=== PATIENT | male | born 1960 | race Two or more races ===

== ENCOUNTER 2022-09-12 16:52 | Inpatient (IN) | payer OTHER ==
[~2022-09-12] VITALS: Ht 172.7 cm; Wt 82.8 kg
[2022-09-12 18:26] LABS: Albumin 2.8 g/dL (3.4-5.0); BUN/Creatinine Ratio 23.5; Calcium 8.2 mg/dL (8.5-10.1); Potassium 4.4 mmol/L (3.5-5.1)
[2022-09-12 18:28] LABS: Bilirubin, Total 0.9 mg/dL (0.2-1.0); Total Protein 6.3 g/dL (6.4-8.2)
[2022-09-12 18:43] LABS: Hematocrit 44.7 % (41.0-53.0); Hemoglobin 14.8 g/dL (13.5-17.5); Mean Corpuscular Hgb Conc. 33.2 g/dL (32.0-36.0)
[2022-09-12 19:02] LABS: Mean Corpuscular Hemoglobin 29.9 pg (28.0-32.0); Mean Corpuscular Volume 89.9 fL (80.0-100.0); Red Blood Cells 4.96 10^6/uL (4.5-5.90); Red Cell Distribution Width 14.2 % (11.8-14.3); White Blood Cell 24.2 10^3/uL (4.4-10.8)
[2022-09-12 19:04] LABS: Basophils % (manual) 0 (0.0-2.0); Blast Cells 0; Eosinophils % (manual) 0 (0-7); Metamyelocytes % 0; Myelocytes % 0; Promyelocytes % 0; Reactive Lymphocytes 0
[2022-09-12 19:47] LABS: Band Neutrophils % (manual) 2; Lymphocytes % (manual) 3 (10.0-50.0); Monocytes % (manual) 13 (0-12)
[2022-09-12] MEDS ORDERED: ALBUTEROL MEDNEB 2.5 mg/3ml NEB ONE (22:14)
[2022-09-12] MEDS ORDERED: ALBUTEROL SULF 2.5 MG/0.5ML(0.5%) NEB SOLN NEB ONE (22:15)
[2022-09-12] MEDS ORDERED: IPRATROPIUM BROM 0.5 MG/2.5ML INH SOL NEB ONE (22:15)
[2022-09-12] MEDS ORDERED: dilTIAZem 25 MG/5 ML VIAL IV ONE ×3 (22:58→23:30)
[2022-09-12] MEDS ORDERED: SODIUM CHLORIDE 0.9% 1,000 ML IV ONE (23:00)
[2022-09-12] MEDS ORDERED: NITROGLYCERIN 0.4 MG SL TAB SL PRN (23:30)
[2022-09-12] MEDS ORDERED: cefTRIAXone 1GM/50ML D5W 50 ML IV ONE (23:30)
[2022-09-12] MEDS ORDERED: ONDANSETRON HCL 4 MG/2 ML VIAL IV PRN (23:30)
[2022-09-12] MEDS ORDERED: MORPHINE SULFATE INJ 2 MG/ml SYRG IV PRN (23:30)
[2022-09-12] MEDS ORDERED: ALBUTEROL SULF 2.5 MG/0.5ML(0.5%) NEB SOLN NEB PRN (23:30)
[2022-09-12] MEDS ORDERED: TEMAZEPAM 15 MG CAP PO PRN (23:30)
[2022-09-13] MEDS ORDERED: DIGOXIN (250MCG/ML) 2 ML AMPULE IV ONE (00:45)
[2022-09-13] MEDS: SODIUM CHLORIDE 0.9% 1,000 ML IV SCH ×3 (00:48→23:02)
[2022-09-13] MEDS: dilTIAZem 125mg/125ml BAG KIT 125 ML IV SCH ×2 (01:06→09:28)
[2022-09-13 02:00] VITALS: BP 120/71
[2022-09-13 06:11] LABS: Albumin 2.5 g/dL (3.4-5.0); Calcium 7.6 mg/dL (8.5-10.1); Potassium 4.1 mmol/L (3.5-5.1)
[2022-09-13 06:13] LABS: Basophils # (auto) 0 10 ^3/uL (0-0.2); Basophils % (auto) 0.2 % (0.0-2.0); Eosinophils # (auto) 0.1 10 ^3/uL (0-0.8); Eosinophils % (auto) 0.3 % (0.0-7.0); Hemoglobin 13.6 g/dL (13.5-17.5); Lymphocytes # (auto) 1.1 10 ^3/uL (0.4-5.4); Lymphocytes % (auto) 5.1 % (10.0-50.0); Mean Corpuscular Hemoglobin 29.9 pg (28.0-32.0); Mean Corpuscular Hgb Conc. 33.1 g/dL (32.0-36.0); Mean Corpuscular Volume 90.4 fL (80.0-100.0); Monocytes # (auto) 1.5 10 ^3/uL (0-1.3); Monocytes % (auto) 7.2 % (0.0-12.0); Neutrophils # (auto) 18.6 10 ^3/uL (1.6-8.6); Neutrophils % (auto) 87.2 % (37.0-80.0); Nucleated Red Blood Cells % 0.1 %; Red Blood Cells 4.54 10^6/uL (4.5-5.90); Red Cell Distribution Width 14.2 % (11.8-14.3); White Blood Cell 21.3 10^3/uL (4.4-10.8)
[2022-09-13 06:14] LABS: BUN/Creatinine Ratio 31.3
[2022-09-13 06:16] LABS: Bilirubin, Total 0.7 mg/dL (0.2-1.0); Total Protein 5.7 g/dL (6.4-8.2)
[2022-09-13] MEDS: ASPirin 81 mg TAB PO SCH (09:27)
[2022-09-13] MEDS: ENOXAPARIN SOD 40 MG/0.4 ML SYRINGE SC SCH (09:28)
[2022-09-13] MEDS ORDERED: AMIODARONE HCL 200 MG TAB PO ONE (09:30)
[2022-09-13] MEDS: dilTIAZem HCL 180MG ER CAP PO SCH (09:53)
[2022-09-13] MEDS ORDERED: ENOXAPARIN SOD 40 MG/0.4 ML SYRINGE SC SCH (10:00)
[2022-09-13 10:06] LABS: Cholesterol 56 mg/dL (< 200)
[2022-09-13 10:09] LABS: HDL Cholesterol 12 mg/dL (40-59); LDL Cholesterol 26 mg/dL (< 100); Triglycerides 134 mg/dL (< 150)
[2022-09-13 12:24] LABS: Amphetamine Screen, Urine NEGATIVE (NEGATIVE); Barbiturate Scree,Urine NEGATIVE (NEGATIVE); Benzodiazephine Screen, Urine NEGATIVE (NEGATIVE); Cannabinoid Screen, Urine NEGATIVE (NEGATIVE); Cocaine Screen, Urine NEGATIVE (NEGATIVE); Phencyclidine Screen, Urine NEGATIVE (NEGATIVE)
[2022-09-13 12:36] LABS: Opiate Scree,Urine <140 (NEGATIVE)
[2022-09-13] MEDS ORDERED: SERTRALINE HCL 50 MG TAB PO ONE (15:00)
[2022-09-13] MEDS ORDERED: THIAMINE 100mg/ml INJ (200mg/2ml VIAL) IV ONE (15:00)
[2022-09-13] MEDS ORDERED: LORazepam 2MG/ML-1ML VIAL IV PRN (15:00)
[2022-09-13] MEDS: PIPERACILLIN-TAZOB 3.375GM 100 ML IV SCH ×2 (16:04→21:42)
[2022-09-13] MEDS ORDERED: cefTRIAXone 1GM/50ML D5W 50 ML IV SCH (21:00)
[2022-09-13 21:14] VITALS: BP 134/76
[2022-09-13] MEDS: AMIODARONE HCL 200 MG TAB PO SCH (21:43)
[2022-09-13 22:00] VITALS: BP 134/76
[2022-09-14 05:00] VITALS: BP 127/76
[2022-09-14] MEDS: PIPERACILLIN-TAZOB 3.375GM 100 ML IV SCH ×3 (05:59→21:33)
[2022-09-14 06:44] LABS: Albumin 2.4 g/dL (3.4-5.0); Calcium 7.9 mg/dL (8.5-10.1); Potassium 4.1 mmol/L (3.5-5.1)
[2022-09-14 06:47] LABS: Bilirubin, Total 1.2 mg/dL (0.2-1.0); Total Protein 5.8 g/dL (6.4-8.2)
[2022-09-14 06:57] LABS: Basophils # (auto) 0.1 10 ^3/uL (0-0.2); Basophils % (auto) 0.4 % (0.0-2.0); Eosinophils # (auto) 0 10 ^3/uL (0-0.8); Hematocrit 41.1 % (41.0-53.0); Hemoglobin 13.2 g/dL (13.5-17.5); Lymphocytes # (auto) 1.4 10 ^3/uL (0.4-5.4); Lymphocytes % (auto) 6.5 % (10.0-50.0); Mean Corpuscular Hemoglobin 28.9 pg (28.0-32.0); Mean Corpuscular Volume 90.1 fL (80.0-100.0); Monocytes # (auto) 1.6 10 ^3/uL (0-1.3); Monocytes % (auto) 7.4 % (0.0-12.0); Neutrophils # (auto) 18.1 10 ^3/uL (1.6-8.6); Neutrophils % (auto) 85.7 % (37.0-80.0); Red Blood Cells 4.56 10^6/uL (4.5-5.90); Red Cell Distribution Width 14.2 % (11.8-14.3); White Blood Cell 21.1 10^3/uL (4.4-10.8)
[2022-09-14 09:00] VITALS: BP 122/79
[2022-09-14] MEDS: ASPirin 81 mg TAB PO SCH (10:23)
[2022-09-14] MEDS: AMIODARONE HCL 200 MG TAB PO SCH ×2 (10:25→21:33)
[2022-09-14] MEDS: dilTIAZem HCL 180MG ER CAP PO SCH (10:26)
[2022-09-14] MEDS: SERTRALINE HCL 50 MG TAB PO SCH (10:27)
[2022-09-14] MEDS: ENOXAPARIN SOD 40 MG/0.4 ML SYRINGE SC SCH (10:28)
[2022-09-14] MEDS: THIAMINE 100mg/ml INJ (200mg/2ml VIAL) IV SCH (10:28)
[2022-09-14 13:00] VITALS: BP 130/80
[2022-09-14 16:17] LABS: Urine Bacteria FEW /hpf (None Seen); Urine Blood 2+ /uL (Negative); Urine Specific Gravity 1.027 (1.001-1.035); Urine WBC 4 /hpf (0 - 3)
[2022-09-14 16:24] VITALS: BP 128/81
[2022-09-14 20:00] VITALS: BP 116/91
[2022-09-14 22:00] VITALS: BP 116/91
[2022-09-15] VITALS (7 sets, daily range): BP systolic 120–147; BP diastolic 72–88
[2022-09-15 05:35] LABS: Hematocrit 40.2 % (41.0-53.0); Hemoglobin 13.2 g/dL (13.5-17.5); Mean Corpuscular Hemoglobin 29.5 pg (28.0-32.0); Mean Corpuscular Hgb Conc. 32.7 g/dL (32.0-36.0); Mean Corpuscular Volume 90.2 fL (80.0-100.0); Red Blood Cells 4.46 10^6/uL (4.5-5.90); Red Cell Distribution Width 14.2 % (11.8-14.3); White Blood Cell 18.5 10^3/uL (4.4-10.8)
[2022-09-15 05:36] LABS: Basophils % (manual) 0 (0.0-2.0); Blast Cells 0; Eosinophils % (manual) 0 (0-7); Metamyelocytes % 0; Myelocytes % 0; Promyelocytes % 0; Reactive Lymphocytes 0
[2022-09-15 05:38] LABS: BUN/Creatinine Ratio 26.1; Calcium 7.7 mg/dL (8.5-10.1); INR 1.12 (0.9-1.15); Partial Thromboplastin Time 30.2 sec (24.6-33.4); Potassium 4.2 mmol/L (3.5-5.1)
[2022-09-15] MEDS: PIPERACILLIN-TAZOB 3.375GM 100 ML IV SCH ×3 (05:48→21:25)
[2022-09-15] MEDS: THIAMINE 100mg/ml INJ (200mg/2ml VIAL) IV SCH (09:07)
[2022-09-15] MEDS: dilTIAZem HCL 180MG ER CAP PO SCH (09:08)
[2022-09-15] MEDS: AMIODARONE HCL 200 MG TAB PO SCH ×2 (09:08→21:25)
[2022-09-15] MEDS: ENOXAPARIN SOD 40 MG/0.4 ML SYRINGE SC SCH (09:08)
[2022-09-15] MEDS: SERTRALINE HCL 50 MG TAB PO SCH (09:08)
[2022-09-15] MEDS: ASPirin 81 mg TAB PO SCH (09:08)
[2022-09-15 11:00] LABS: Band Neutrophils % (manual) 18; Lymphocytes % (manual) 12 (10.0-50.0); Monocytes % (manual) 4 (0-12)
[2022-09-15] MEDS: APIXABAN 5 MG TAB PO SCH (21:24)
[2022-09-16] VITALS (7 sets, daily range): BP systolic 127–147; BP diastolic 77–93
[2022-09-16] MEDS: PIPERACILLIN-TAZOB 3.375GM 100 ML IV SCH ×4 (04:57→21:20)
[2022-09-16 06:01] LABS: BUN/Creatinine Ratio 22.7; Calcium 8.2 mg/dL (8.5-10.1); Potassium 4.2 mmol/L (3.5-5.1)
[2022-09-16 06:02] LABS: Basophils # (auto) 0 10 ^3/uL (0-0.2); Basophils % (auto) 0.2 % (0.0-2.0); Eosinophils # (auto) 0.1 10 ^3/uL (0-0.8); Eosinophils % (auto) 0.4 % (0.0-7.0); Hematocrit 40.1 % (41.0-53.0); Lymphocytes # (auto) 1.5 10 ^3/uL (0.4-5.4); Lymphocytes % (auto) 9.1 % (10.0-50.0); Mean Corpuscular Hemoglobin 29.3 pg (28.0-32.0); Mean Corpuscular Hgb Conc. 32.4 g/dL (32.0-36.0); Mean Corpuscular Volume 90.7 fL (80.0-100.0); Monocytes # (auto) 1.3 10 ^3/uL (0-1.3); Monocytes % (auto) 8.1 % (0.0-12.0); Neutrophils # (auto) 13.7 10 ^3/uL (1.6-8.6); Neutrophils % (auto) 82.2 % (37.0-80.0); Red Blood Cells 4.42 10^6/uL (4.5-5.90); Red Cell Distribution Width 14.1 % (11.8-14.3); White Blood Cell 16.6 10^3/uL (4.4-10.8)
[2022-09-16] MEDS: THIAMINE HCL 100 MG TAB PO SCH (10:13)
[2022-09-16] MEDS: ASPirin 81 mg TAB PO SCH (10:13)
[2022-09-16] MEDS: AMIODARONE HCL 200 MG TAB PO SCH ×2 (10:13→21:20)
[2022-09-16] MEDS: dilTIAZem HCL 180MG ER CAP PO SCH (10:13)
[2022-09-16] MEDS: APIXABAN 5 MG TAB PO SCH ×2 (10:14→21:20)
[2022-09-16] MEDS: SERTRALINE HCL 50 MG TAB PO SCH (10:14)
[2022-09-17 05:00] VITALS: BP 129/76
[2022-09-17] MEDS: PIPERACILLIN-TAZOB 3.375GM 100 ML IV SCH ×3 (05:39→22:09)
[2022-09-17 07:22] LABS: Basophils # (auto) 0.1 10 ^3/uL (0-0.2); Basophils % (auto) 0.3 % (0.0-2.0); Eosinophils # (auto) 0.1 10 ^3/uL (0-0.8); Eosinophils % (auto) 0.5 % (0.0-7.0); Hematocrit 37.1 % (41.0-53.0); Hemoglobin 12.4 g/dL (13.5-17.5); Lymphocytes # (auto) 1.1 10 ^3/uL (0.4-5.4); Lymphocytes % (auto) 7.1 % (10.0-50.0); Mean Corpuscular Hemoglobin 30.3 pg (28.0-32.0); Mean Corpuscular Hgb Conc. 33.5 g/dL (32.0-36.0); Mean Corpuscular Volume 90.5 fL (80.0-100.0); Monocytes # (auto) 1.1 10 ^3/uL (0-1.3); Monocytes % (auto) 7.2 % (0.0-12.0); Neutrophils # (auto) 12.8 10 ^3/uL (1.6-8.6); Neutrophils % (auto) 84.9 % (37.0-80.0); Red Cell Distribution Width 14.1 % (11.8-14.3); White Blood Cell 15.1 10^3/uL (4.4-10.8)
[2022-09-17 07:30] VITALS: BP 137/71
[2022-09-17 07:35] LABS: Albumin 2.2 g/dL (3.4-5.0); Calcium 7.9 mg/dL (8.5-10.1); Potassium 4.4 mmol/L (3.5-5.1)
[2022-09-17 07:41] LABS: BUN/Creatinine Ratio 17.6; Bilirubin, Total 0.8 mg/dL (0.2-1.0); Total Protein 6.1 g/dL (6.4-8.2)
[2022-09-17 08:00] VITALS: BP 137/77
[2022-09-17] MEDS: ACETAMINOPHEN 325 MG TAB PO PRN ×2 (08:07→22:49)
[2022-09-17] MEDS: ASPirin 81 mg TAB PO SCH (09:06)
[2022-09-17] MEDS: APIXABAN 5 MG TAB PO SCH ×2 (09:06→22:09)
[2022-09-17] MEDS: AMIODARONE HCL 200 MG TAB PO SCH ×2 (09:07→22:09)
[2022-09-17] MEDS: THIAMINE HCL 100 MG TAB PO SCH (09:07)
[2022-09-17] MEDS: SERTRALINE HCL 50 MG TAB PO SCH (09:08)
[2022-09-17] MEDS: dilTIAZem HCL 180MG ER CAP PO SCH (09:08)
[2022-09-17 12:00] VITALS: BP 130/67
[2022-09-17 16:00] VITALS: BP 131/73
[2022-09-17 22:00] VITALS: BP 132/79
[2022-09-18] VITALS (7 sets, daily range): BP systolic 111–128; BP diastolic 69–77
[2022-09-18] MEDS: PIPERACILLIN-TAZOB 3.375GM 100 ML IV SCH ×3 (06:03→21:25)
[2022-09-18] MEDS: ASPirin 81 mg TAB PO SCH (09:45)
[2022-09-18] MEDS: dilTIAZem HCL 180MG ER CAP PO SCH (09:46)
[2022-09-18] MEDS: APIXABAN 5 MG TAB PO SCH ×2 (09:46→21:26)
[2022-09-18] MEDS: AMIODARONE HCL 200 MG TAB PO SCH ×2 (09:46→21:25)
[2022-09-18] MEDS: THIAMINE HCL 100 MG TAB PO SCH (09:46)
[2022-09-18] MEDS: SERTRALINE HCL 50 MG TAB PO SCH (09:47)
[2022-09-19 05:00] VITALS: BP 116/57
[2022-09-19] MEDS: PIPERACILLIN-TAZOB 3.375GM 100 ML IV SCH ×3 (06:17→21:44)
[2022-09-19 06:23] LABS: Eosinophils # (auto) 0.1 10 ^3/uL (0-0.8); Eosinophils % (auto) 0.5 % (0.0-7.0); Lymphocytes # (auto) 1.1 10 ^3/uL (0.4-5.4); Monocytes # (auto) 0.8 10 ^3/uL (0-1.3)
[2022-09-19 06:26] LABS: Basophils # (auto) 0.1 10 ^3/uL (0-0.2); Basophils % (auto) 0.6 % (0.0-2.0); Hematocrit 32.4 % (41.0-53.0); Hemoglobin 10.7 g/dL (13.5-17.5); Lymphocytes % (auto) 8.6 % (10.0-50.0); Mean Corpuscular Hemoglobin 29.8 pg (28.0-32.0); Mean Corpuscular Hgb Conc. 33.1 g/dL (32.0-36.0); Monocytes % (auto) 6.4 % (0.0-12.0); Neutrophils # (auto) 10.5 10 ^3/uL (1.6-8.6); Neutrophils % (auto) 83.9 % (37.0-80.0); Red Cell Distribution Width 13.9 % (11.8-14.3); White Blood Cell 12.5 10^3/uL (4.4-10.8)
[2022-09-19 06:43] LABS: Potassium 3.8 mmol/L (3.5-5.1)
[2022-09-19 06:48] LABS: Albumin 2.1 g/dL (3.4-5.0); BUN/Creatinine Ratio 12.6; Bilirubin, Total 0.6 mg/dL (0.2-1.0); Calcium 7.8 mg/dL (8.5-10.1); Total Protein 6.4 g/dL (6.4-8.2)
[2022-09-19 08:00] VITALS: BP 124/74
[2022-09-19 09:00] VITALS: BP 124/74
[2022-09-19] MEDS: dilTIAZem HCL 180MG ER CAP PO SCH (09:22)
[2022-09-19] MEDS: AMIODARONE HCL 200 MG TAB PO SCH ×2 (09:22→21:44)
[2022-09-19] MEDS: APIXABAN 5 MG TAB PO SCH ×2 (09:22→21:44)
[2022-09-19] MEDS: ASPirin 81 mg TAB PO SCH (09:22)
[2022-09-19] MEDS: THIAMINE HCL 100 MG TAB PO SCH (09:22)
[2022-09-19] MEDS: SERTRALINE HCL 50 MG TAB PO SCH (09:23)
[2022-09-19 12:53] VITALS: BP 120/74
[2022-09-19 16:35] VITALS: BP 111/71
[2022-09-19 22:00] VITALS: BP 112/68
[2022-09-20 05:03] VITALS: BP 105/63
[2022-09-20] MEDS: PIPERACILLIN-TAZOB 3.375GM 100 ML IV SCH ×3 (06:15→22:39)
[2022-09-20 07:30] VITALS: BP 113/66
[2022-09-20 07:40] LABS: Basophils # (auto) 0.1 10 ^3/uL (0-0.2); Basophils % (auto) 0.5 % (0.0-2.0); Eosinophils # (auto) 0.1 10 ^3/uL (0-0.8); Eosinophils % (auto) 0.8 % (0.0-7.0); Hematocrit 30.9 % (41.0-53.0); Hemoglobin 10.2 g/dL (13.5-17.5); Lymphocytes # (auto) 1.1 10 ^3/uL (0.4-5.4); Lymphocytes % (auto) 10.4 % (10.0-50.0); Mean Corpuscular Hemoglobin 29.7 pg (28.0-32.0); Mean Corpuscular Hgb Conc. 32.9 g/dL (32.0-36.0); Mean Corpuscular Volume 90.2 fL (80.0-100.0); Monocytes # (auto) 0.7 10 ^3/uL (0-1.3); Monocytes % (auto) 6.5 % (0.0-12.0); Neutrophils % (auto) 81.8 % (37.0-80.0); Nucleated Red Blood Cells % 0.1 %; Red Blood Cells 3.42 10^6/uL (4.5-5.90); Red Cell Distribution Width 13.8 % (11.8-14.3)
[2022-09-20 07:57] LABS: BUN/Creatinine Ratio 13.2; Calcium 7.9 mg/dL (8.5-10.1); Potassium 3.7 mmol/L (3.5-5.1)
[2022-09-20 08:40] VITALS: BP 113/66
[2022-09-20] MEDS: dilTIAZem HCL 180MG ER CAP PO SCH (10:00)
[2022-09-20] MEDS: ASPirin 81 mg TAB PO SCH (10:25)
[2022-09-20] MEDS: THIAMINE HCL 100 MG TAB PO SCH (10:26)
[2022-09-20] MEDS: SERTRALINE HCL 50 MG TAB PO SCH (10:35)
[2022-09-20] MEDS: APIXABAN 5 MG TAB PO SCH (10:36)
[2022-09-20] MEDS: AMIODARONE HCL 200 MG TAB PO SCH ×2 (10:36→22:42)
[2022-09-20 12:45] VITALS: BP 109/65
[2022-09-20 17:31] VITALS: BP 117/69
[2022-09-20 22:59] LABS: Urine Bacteria NONE SEEN /hpf (None Seen); Urine Blood TRACE /uL (Negative); Urine Specific Gravity 1.009 (1.001-1.035); Urine WBC 1 /hpf (0 - 3)
[2022-09-20 23:38] VITALS: BP 114/60
[2022-09-21 05:21] VITALS: BP 102/67
[2022-09-21] MEDS: PIPERACILLIN-TAZOB 3.375GM 100 ML IV SCH (06:25)
[2022-09-21 07:23] LABS: Basophils # (auto) 0.1 10 ^3/uL (0-0.2); Eosinophils # (auto) 0.1 10 ^3/uL (0-0.8); Hemoglobin 9.8 g/dL (13.5-17.5); Lymphocytes # (auto) 1.5 10 ^3/uL (0.4-5.4); Monocytes # (auto) 0.8 10 ^3/uL (0-1.3)
[2022-09-21 07:25] LABS: Eosinophils % (auto) 0.9 % (0.0-7.0); Hematocrit 29.6 % (41.0-53.0); Lymphocytes % (auto) 13.9 % (10.0-50.0); Mean Corpuscular Hgb Conc. 33.2 g/dL (32.0-36.0); Mean Corpuscular Volume 90.1 fL (80.0-100.0); Monocytes % (auto) 7.4 % (0.0-12.0); Neutrophils # (auto) 8.2 10 ^3/uL (1.6-8.6); Neutrophils % (auto) 76.8 % (37.0-80.0); Nucleated Red Blood Cells % 0.1 %; Red Blood Cells 3.29 10^6/uL (4.5-5.90); Red Cell Distribution Width 13.8 % (11.8-14.3); White Blood Cell 10.6 10^3/uL (4.4-10.8)
[2022-09-21 07:34] LABS: INR 1.18 (0.9-1.15); Partial Thromboplastin Time 27.6 sec (24.6-33.4)
[2022-09-21 08:20] VITALS: BP 112/74
[2022-09-21] MEDS ORDERED: fentaNYL CITRATE 100 MCG/2 ML VL IV ONE (09:45)
[2022-09-21] MEDS ORDERED: LIDOCAINE VISCOUS 2% 15ML UD MT ONE (09:45)
[2022-09-21] MEDS ORDERED: MIDAZOLAM HCL 2MG/2ML 2ml VIAL (1mg/ml) IV ONE (09:45)
[2022-09-21 12:25] VITALS: BP 113/76
[2022-09-21] MEDS: ASPirin 81 mg TAB PO SCH (13:37)
[2022-09-21] MEDS: levoFLOXacin 500MG 100 ML IV SCH (13:37)
[2022-09-21] MEDS: AMIODARONE HCL 200 MG TAB PO SCH ×2 (13:38→22:24)
[2022-09-21] MEDS: THIAMINE HCL 100 MG TAB PO SCH (13:38)
[2022-09-21] MEDS: dilTIAZem HCL 180MG ER CAP PO SCH (13:38)
[2022-09-21] MEDS: SERTRALINE HCL 50 MG TAB PO SCH (13:39)
[2022-09-21 16:10] VITALS: BP 119/75
[2022-09-21 20:00] VITALS: BP 114/70
[2022-09-21 22:00] VITALS: BP 120/70
[2022-09-22 05:07] VITALS: BP 116/72
[2022-09-22 08:15] VITALS: BP 116/72
[2022-09-22] MEDS: dilTIAZem HCL 180MG ER CAP PO SCH (10:07)
[2022-09-22] MEDS: levoFLOXacin 500MG 100 ML IV SCH (10:07)
[2022-09-22] MEDS: THIAMINE HCL 100 MG TAB PO SCH (10:08)
[2022-09-22] MEDS: SERTRALINE HCL 50 MG TAB PO SCH (10:08)
[2022-09-22] MEDS: ASPirin 81 mg TAB PO SCH (10:08)
[2022-09-22] MEDS: AMIODARONE HCL 200 MG TAB PO SCH (10:08)
[2022-09-22 12:20] VITALS: BP 117/70
[2022-09-22 16:20] VITALS: BP 120/66
[2022-09-22 22:00] VITALS: BP 115/77
[2022-09-23] MEDS: AMIODARONE HCL 200 MG TAB PO SCH ×3 (00:08→22:46)
[2022-09-23 02:22] LABS: INR 1.17 (0.9-1.15); Partial Thromboplastin Time 28.1 sec (24.6-33.4)
[2022-09-23 05:00] VITALS: BP 129/72
[2022-09-23 06:57] LABS: Basophils # (auto) 0.1 10 ^3/uL (0-0.2); Eosinophils # (auto) 0.1 10 ^3/uL (0-0.8); Monocytes # (auto) 0.7 10 ^3/uL (0-1.3); Neutrophils # (auto) 8.4 10 ^3/uL (1.6-8.6); Red Cell Distribution Width 13.5 % (11.8-14.3); White Blood Cell 11.2 10^3/uL (4.4-10.8)
[2022-09-23 06:59] LABS: Basophils % (auto) 0.8 % (0.0-2.0); Eosinophils % (auto) 0.6 % (0.0-7.0); Hematocrit 31.4 % (41.0-53.0); Hemoglobin 10.4 g/dL (13.5-17.5); Lymphocytes % (auto) 17.7 % (10.0-50.0); Mean Corpuscular Hemoglobin 29.7 pg (28.0-32.0); Mean Corpuscular Volume 89.9 fL (80.0-100.0); Monocytes % (auto) 6.3 % (0.0-12.0); Neutrophils % (auto) 74.6 % (37.0-80.0); Red Blood Cells 3.49 10^6/uL (4.5-5.90)
[2022-09-23 07:21] LABS: Potassium 3.9 mmol/L (3.5-5.1)
[2022-09-23 07:25] LABS: Albumin 2.3 g/dL (3.4-5.0); BUN/Creatinine Ratio 11.8; Bilirubin, Total 0.5 mg/dL (0.2-1.0); Calcium 8.3 mg/dL (8.5-10.1); Total Protein 6.8 g/dL (6.4-8.2)
[2022-09-23 08:00] VITALS: BP 121/75
[2022-09-23] MEDS ORDERED: LIDOCAINE W/ EPINEPHRINE 1% 20ML VIAL ONE (08:02)
[2022-09-23] MEDS ORDERED: BUPIVACAINE 0.25% INJ 50ML VIAL ONE (08:02)
[2022-09-23] MEDS ORDERED: ceFAZolin 1GM/50ML 100 ML IV ONE (08:13)
[2022-09-23] MEDS ORDERED: LIDOCAINE 2% JELLY 11ml (GLYDO) ONE (08:26)
[2022-09-23] MEDS ORDERED: SUCCINYLCHOLINE CHLORIDE 20 MG/ML 10ML VIAL IV ONE (08:32)
[2022-09-23] MEDS ORDERED: MIDAZOLAM HCL 2MG/2ML 2ml VIAL (1mg/ml) ONE (08:35)
[2022-09-23] MEDS ORDERED: fentaNYL CITRATE 100 MCG/2 ML VL ONE (08:35)
[2022-09-23] MEDS ORDERED: MEPERIDINE HCL (25 MG/ML) 1ML VIAL ONE (08:35)
[2022-09-23] MEDS ORDERED: DexAMETHasone SOD PHOS 10MG/1ML VIAL INJ ONE (09:09)
[2022-09-23] MEDS ORDERED: ETOMIDATE (2MG/ML) 20ML VIAL IV ONE (09:09)
[2022-09-23] MEDS ORDERED: HYDROmorphone HCL 2 MG/ML VL/or syr IV PRN (09:15)
[2022-09-23] MEDS ORDERED: LABETALOL HCL 5 MG/ML 4ML SYRINGE IV PRN (09:15)
[2022-09-23] MEDS ORDERED: MIDAZOLAM HCL 2MG/2ML 2ml VIAL (1mg/ml) IV PRN (09:15)
[2022-09-23] MEDS ORDERED: MORPHINE SULFATE 4 MG/ML SYR/VIAL IV PRN (09:15)
[2022-09-23] MEDS ORDERED: ONDANSETRON HCL 4 MG/2 ML VIAL IV PRN (09:15)
[2022-09-23] MEDS ORDERED: ePHEDrine SULFATE 50 MG/ML AMP IV PRN (09:15)
[2022-09-23] MEDS: levoFLOXacin 500MG 100 ML IV SCH (11:26)
[2022-09-23] MEDS: THIAMINE HCL 100 MG TAB PO SCH (11:27)
[2022-09-23] MEDS: ASPirin 81 mg TAB PO SCH (11:27)
[2022-09-23] MEDS: SERTRALINE HCL 50 MG TAB PO SCH (11:27)
[2022-09-23] MEDS: dilTIAZem HCL 180MG ER CAP PO SCH (11:30)
[2022-09-23] MEDS ORDERED: AMIO200T33 PO (12:10)
[2022-09-23] MEDS ORDERED: SERT50TA PO (12:10)
[2022-09-23] MEDS ORDERED: APIX5TAB PO (12:10)
[2022-09-23] MEDS ORDERED: DILT-102 PO (12:10)
[2022-09-23] MEDS ORDERED: LEVO500T31 PO (12:10)
[2022-09-23 12:24] VITALS: BP 117/78
[2022-09-23 17:00] VITALS: BP 123/76
[2022-09-23 22:00] VITALS: BP 115/73
[2022-09-24 05:00] VITALS: BP 127/55
[2022-09-24 09:00] VITALS: BP 128/82
[2022-09-24] MEDS: levoFLOXacin 500MG 100 ML IV SCH (10:01)
[2022-09-24] MEDS: THIAMINE HCL 100 MG TAB PO SCH (10:02)
[2022-09-24] MEDS: dilTIAZem HCL 180MG ER CAP PO SCH (10:02)
[2022-09-24] MEDS: AMIODARONE HCL 200 MG TAB PO SCH (10:02)
[2022-09-24] MEDS: ASPirin 81 mg TAB PO SCH (10:02)
[2022-09-24] MEDS: SERTRALINE HCL 50 MG TAB PO SCH (10:03)
[2022-09-24 13:00] VITALS: BP 121/79
[2022-09-24 17:00] VITALS: BP 131/83
== END 2022-09-24 16:31 | disposition home or self-care (01) | DRG 853 ==
LOC: ER 16:52 → TELE 23:32 → TELE-WESTW 09-13 20:55
PROVIDERS: ADMIT Nurse Practitioner; ATTEND Internal Medicine
PROC: 0KBL0ZZ Excision of Left Abdomen Muscle, Open Approach (ICD-10-PCS; principal; 2022-09-23 08:44)
DX: A40.9 Streptococcal sepsis, unspecified (principal); N17.0 Acute kidney failure with tubular necrosis; E44.0 Moderate protein-calorie malnutrition; R18.8 Other ascites; E87.1 Hypo-osmolality and hyponatremia; I48.20 Chronic atrial fibrillation, unspecified; I42.9 Cardiomyopathy, unspecified; I50.20 Unspecified systolic (congestive) heart failure; D68.69 Other thrombophilia; I11.0 Hypertensive heart disease with heart failure; K72.90 Hepatic failure, unspecified without coma; D72.829 Elevated white blood cell count, unspecified; E83.51 Hypocalcemia; R74.01 Elevation of levels of liver transaminase levels; F10.10 Alcohol abuse, uncomplicated; Y90.9 Presence of alcohol in blood, level not specified; J40 Bronchitis, not specified as acute or chronic; F32.A Depression, unspecified; Z20.822 Contact with and (suspected) exposure to COVID-19; Z79.01 Long term (current) use of anticoagulants; Z79.899 Other long term (current) drug therapy; Z68.27 Body mass index [BMI] 27.0-27.9, adult
CPT/HCPCS: 36415; 71045; 71260; 74176; 74177; 76705; 80048; 80053; 80061; 80307; 80320; 81001; 83036; 83605; 83735; 83880; 84443; 84484; 85007; 85025; 85027; 85610; 85730; 86850; 86900; 86901; 87040; 87077; 87086; 87186; 87426; 93005; 93306; 93312; 94640; 96361; 96365; 96366; 96367; 96372; 96375; 96376; 99152; G0378; J0330; J0690; J0696; J1100; J1956; J2250; J2543; J3490; J7042